=== PATIENT | female | born 1995 | race Caucasian/White ===

== ENCOUNTER 2016-10-05 15:55 | Inpatient (IN) ==
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
[2016-10-05 16:37] LABS: Bilirubin,Urine Negative (Negative); Blood,Urine Negative (Negative); Color,Urine Yellow (Yellow); Glucose,Urine (UA) Normal (Normal); Ketones,Urine Negative (Negative); Leukocyte Esterase,Urine Small (Negative); Nitrite,Urine Negative (Negative); Protein,Urine Trace mg/dL (Neg-Trace); Urobilinogen,Urine Normal (Normal)
[2016-10-05 16:39] LABS: Amphetamine Screen,Urine Negative ng/mL (Cutoff=1000); Barbiturate Screen,Urine Negative ng/mL (Cutoff=200); Benzodiazepines Screen,Urine Negative ng/mL (Cutoff=200); Cannabinoid Screen,Urine Positive ng/mL (Cutoff = 50); Cocaine Screen,Urine Negative ng/mL (Cutoff= 300); Opiate Screen,Urine Negative ng/mL (Cutoff=300); Phencyclidine Screen,Urine Negative ng/mL (Cutoff=25)
[2016-10-05 16:43] LABS: Bacteria,Urine Few per hpf (None-Few); Hyaline Casts,Urine Few per lpf (None-Few); Squamous Epithelial Cell,Urine Many per lpf (None-Few)
[2016-10-05] MEDS ORDERED: *HR* LORazepam 1 MG TABLET PO ONE (16:47)
[2016-10-05 16:48] LABS: Basophils % 0.2 %; Eosinophils % 0.1 %; Hematocrit 41.3 % (35.3-44.9); Hemoglobin 14.1 g/dL (11.5-15.4); Immature Granulocytes % 0.4 % (0-4); Immature Platelets 10.9 % (1.1-6.1); Lymphocytes # 1.3 K/mcL (0.6-4.6); Lymphocytes % 13.2 %; Mean Corpuscular HGB Conc 34.1 g/dL (31.6-35.5); Mean Corpuscular Volume 87.9 fL (83.0-100.0); Mean Platelet Volume 11.5 fL (9.4-12.4); Monocytes # 0.4 K/mcL (0.0-1.3); Monocytes % 4.1 %; Neutrophils # 8.2 K/mcL (1.6-8.9); Platelet Count 231 K/mcL (140-400); Red Cell Distribution Width 11.9 % (11.5-14.5)
[2016-10-05 16:57] LABS: Clarity,Urine Hazy (Clear)
[2016-10-05 17:04] LABS: Acetaminophen < 1.0 mcg/mL (10-30); BUN/Creatinine Ratio 19 (6-26); Blood Urea Nitrogen 16 mg/dL (7-20); Calcium 9.7 mg/dL (8.6-10.8); Carbon Dioxide 23 mEq/L (19-29); Chloride 112 mEq/L (98-109); Ethanol < 10 mg/dL (0-10); Glucose 84 mg/dL (70-99); Osmolality,Calculated 292 (280-300); Potassium 3.4 mEq/L (3.5-4.5); Salicylate < 5.0 mg/dL (15-30); Sodium 141 mEq/L (136-145); eGFR For African Americans > 60 (> 60); eGFR For Non-African Americans > 60 (> 60)
[2016-10-05 17:16] LABS: Mucus,Urine Moderate (Few)
[2016-10-05 17:17] LABS: Transitional Epi Cells,Urine Few per hpf (None-Few)
[2016-10-05] MEDS ORDERED: Mag Hydrox/Al Hydrox/Simeth 30 ML UDC PO PRN (21:48)
[2016-10-05] MEDS ORDERED: Haloperidol Lactate 5 MG/ML VIAL IM PRN (21:48)
[2016-10-05] MEDS ORDERED: *HR* LORazepam 1 MG TABLET PO PRN (21:48)
[2016-10-05] MEDS ORDERED: *HR* LORazepam 2 MG/ML VIAL IM PRN (21:48)
[2016-10-05] MEDS ORDERED: MOM Conc 10 ML UD.LIQ PO PRN (21:48)
[2016-10-05] MEDS: hydrOXYzine pamoate 25 MG CAPSULE PO PRN (22:21)
[2016-10-05] MEDS: traZODone 50 MG TABLET PO PRN (22:21)
[2016-10-05] MEDS: Nicotine 2 MG GUM BC PRN (22:21)
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
[2016-10-06] MEDS: Nicotine 2 MG GUM BC PRN ×2 (16:04→20:45)
[2016-10-06] MEDS: traZODone 50 MG TABLET PO PRN (20:44)
[2016-10-06] MEDS: hydrOXYzine pamoate 25 MG CAPSULE PO PRN (20:45)
--- NOTE | 2016-10-07 18:45 | Psychiatry Progress Note ---
Date of Encounter: 10/07/16 Time of Encounter: 18:42 Subjective Interval history: Tolerating Zoloft well. Reports it makes her sleepy but prefers to keep it in the AM for now. Feeling a little better. SI still present but less intense. Depression still present but sees some improvement. Staff report she is engaging a bit better. Eye contact still limited but improved. Social work spoke with brother today. He is supportive and was previously inpatient himself. He is caring for her kids and wants her to get the help she needs. Review of Systems Constitutional: Denies: fever, chills, weakness, weight change Eyes: Denies: eye pain, vision change Ears, Nose, Throat: Denies: ear pain, throat pain, dental pain, hearing loss, congestion Cardiovascular: Denies: chest pain, palpitations, dyspnea on exertion Respiratory: Denies: cough, dyspnea, wheezes Gastrointestinal: Denies: abdominal pain, nausea, vomiting, diarrhea, constipation Musculoskeletal: Denies: joint swelling, joint pain Neurological: Denies: headache, weakness, numbness, memory loss Objective: Exam Patient orientation: Yes Person, Yes Time, Yes Place Level of alertness: Alert Patient appearance: Appropriate, Well Groomed Behavior: anxious Psychomotor activity: Normal Eye contact: Minimal Contact Mood description: Depressed Affect description: congruent with mood Speech pattern: Normal rate, Normal rhythm, Normal tone Speech volume: Normal Thought process: Linear, Goal Oriented Thought content: Yes Suicidal ideation Perceptual disturbances: No Auditory hallucinations, No Visual hallucinations Judgment: Fair Insight: Partial Results - Vital Signs Vital Signs: Temp Pulse Resp BP Pulse Ox 98.9 F 68 16 104/60 99 10/07/16 09:00 10/07/16 09:00 10/07/16 09:00 10/07/16 09:00 10/05/16 16:00 Assessment and Plan (1) Suicidal ideation Current visit: Yes Status: Acute Plan: Continue hospitalization, Close observation, Suicide Precautions per unit protocol, Encourage participation in unit milieu, Group Therapy, Monitor sleep, Monitor appetite, Secure weapons Risks, benefits, side effects, alternatives discussed w/pt: Yes Patient agreeable to treatment: Yes Consult Discharge Plan - Plan Referrals: Slim Nevarez [facility] [place] [Outside] - 10/15/16 1:45 pm (The above appointment is with [facility] for counseling. You will also see Ali Ashuelot, primary care provider, in the same office on 10/21/2016 at 10:15am. You will also see Bella Altman, psychiatric provider, in the same office on 12/29/2016 at 10: 00am. Please arrive 15 minutes early to your first appointment to complete paperwork. Please bring your insurance card, photo ID and medications in their original bottles. If you do not have insurance, bring proof of income to apply for the sliding fee scale. If you are unable to keep this appointment, 24 hour business notice of cancellation is expected. This is the first available appointment. You may contact the office regularly to check for cancellations that may allow you to be seen sooner. )
[2016-10-07] MEDS: Ibuprofen 400 MG TABLET PO PRN (21:05)
[2016-10-07] MEDS: hydrOXYzine pamoate 25 MG CAPSULE PO PRN (21:05)
[2016-10-07] MEDS: traZODone 50 MG TABLET PO PRN (21:05)
--- NOTE | 2016-10-08 13:31 | Psychiatry Progress Note ---
Date of Encounter: 10/08/16 Time of Encounter: 13:26 Subjective Interval history: Looking better. More affect. Better eye contact. Socialized some last night- works second shift normally so would expect more interaction on second shift. Still experiencing SI last night but has not had any SI so far this morning. Notices improvement in her mood. Mother still causing her stress but she is working on a plan to live with her grandmother or aunt. Has hope for the first time that things will work out. Discussed readiness for discharge. Given that she was still experiencing some SI before going to bed last night and still has housing stressors will look at trying to resolve those things today and discharge tomorrow. Review of Systems Constitutional: Denies: fever, chills, weakness, weight change Eyes: Denies: eye pain, vision change Ears, Nose, Throat: Denies: ear pain, throat pain, dental pain, hearing loss, congestion Cardiovascular: Denies: chest pain, palpitations, dyspnea on exertion Respiratory: Denies: cough, dyspnea, wheezes Gastrointestinal: Denies: abdominal pain, nausea, vomiting, diarrhea, constipation Musculoskeletal: Denies: joint swelling, joint pain Neurological: Denies: headache, weakness, numbness, memory loss Objective: Exam Patient orientation: Yes Person, Yes Time, Yes Place Level of alertness: Alert Patient appearance: Appropriate, Well Groomed Behavior: calm, cooperative Psychomotor activity: Normal Eye contact: Maintains Eye Contact Mood description: Depressed Affect description: congruent with mood Speech pattern: Normal rate, Normal rhythm, Normal tone Speech volume: Normal Thought process: Linear, Goal Oriented Thought content: Yes Suicidal ideation Perceptual disturbances: No Auditory hallucinations, No Visual hallucinations Judgment: Fair Insight: Partial Results - Vital Signs Vital Signs: Temp Pulse Resp BP Pulse Ox 98.8 F 65 16 105/63 99 10/08/16 09:00 10/08/16 09:00 10/08/16 09:00 10/08/16 09:00 10/05/16 16:00 Assessment and Plan (1) Suicidal ideation Current visit: Yes Status: Acute Plan: Continue hospitalization, Close observation, Suicide Precautions per unit protocol, Encourage participation in unit milieu, Group Therapy, Monitor sleep, Monitor appetite, Secure weapons Risks, benefits, side effects, alternatives discussed w/pt: Yes Patient agreeable to treatment: Yes Consult Discharge Plan - Plan Referrals: [facility] [place] [Outside] - 10/15/16 1:45 pm (The above appointment is with [facility] for counseling. You will also see Phu Babin, primary care provider, in the same office on 10/21/2016 at 10:15am. You will also see Bella Altman, psychiatric provider, in the same office on 12/29/2016 at 10: 00am. Please arrive 15 minutes early to your first appointment to complete paperwork. Please bring your insurance card, photo ID and medications in their original bottles. If you do not have insurance, bring proof of income to apply for the sliding fee scale. If you are unable to keep this appointment, 24 hour business notice of cancellation is expected. This is the first available appointment. You may contact the office regularly to check for cancellations that may allow you to be seen sooner. )
[2016-10-08] MEDS: hydrOXYzine pamoate 25 MG CAPSULE PO PRN (20:54)
[2016-10-08] MEDS: Ibuprofen 400 MG TABLET PO PRN (20:54)
[2016-10-08] MEDS: traZODone 50 MG TABLET PO PRN (20:55)
[2016-10-09 09:38] VITALS: BP 110/69
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
== END 2016-10-09 15:50 | disposition home or self-care (01) | DRG 754 ==
LOC: 1ANU 15:55 → EMEROO 15:55 → SUATTDRO 20:26 → 1ANU 20:40
PROVIDERS: ADMIT Psychiatry & Neurology Psychiatry; ATTEND Psychiatry & Neurology Psychiatry